=== PATIENT | female | born 1940 | race African-American/Black ===

== ENCOUNTER 2017-11-28 15:27 | Emergency (ER) | payer OTHER ==
[~2017-11-28] VITALS: Ht 170.2 cm; Wt 83.9 kg
[2017-11-28] MEDS ORDERED: MEDROLDOSEPACK PO (17:50)
[2017-11-28 18:00] VITALS: BP 119/65
== END 2017-11-28 18:00 | disposition home or self-care (01) ==
LOC: ER 15:27
DX: L25.9 Unspecified contact dermatitis, unspecified cause (principal); E03.9 Hypothyroidism, unspecified; E78.00 Pure hypercholesterolemia, unspecified; E05.90 Thyrotoxicosis, unspecified without thyrotoxic crisis or storm; I10 Essential (primary) hypertension; Z90.710 Acquired absence of both cervix and uterus; Z90.11 Acquired absence of right breast and nipple; Z85.3 Personal history of malignant neoplasm of breast